=== PATIENT | male | born 1940 | race Caucasian/White ===

== ENCOUNTER 2016-06-10 09:58 | Day surgery (SDC) | payer OTHER ==
[~2016-06-10] VITALS: Ht 180.3 cm; Wt 127.0 kg
[~2016-06-10 09:58] MED LIST: ASPIR 8181 M1 PO; ASPIRIN EC325 MG PO; ASPIRIN81 M1 PO; AUGMENTIN875 MG PO; AZITHROMYCIN500 M1 PO; Aspirin PO; CITALOPRAM HBR20 MG PO; COUMADIN2 MG PO; COUMADIN4 MG PO; COUMADIN5 MG PO; Ecotrin PO; FENOFIBRATE160 M1 PO; FUROSEMIDE40 MG PO; Fenofibrate PO; HYDROCODON-ACE1 EAC7 PO; IMDUR60 MG PO; IRON160 M1 PO; ISOSORBIDE MONO60 MG PO; K-DUR20 MEQ PO; LEXAPRO20 MG PO; LORAZEPAM0.5 MG PO; LORAZEPAM1 MG PO; LUNESTA2 MG PO; METOPROLOL SUC100 MG PO; METOPROLOL TART50 MG PO; Metoprolol Tartrate PO; NAPROSYN500 MG PO; NAPROXEN500 M2 PO; NORVASC5 MG PO; Norvasc PO; OMEPRAZOLE20 M3 PO; PLAVIX75 MG PO; PRAVASTATIN SOD40 MG PO; PRINZIDE 20-121 EACH PO; Pravastatin Sodium PO; TOPROL XL100 MG PO; TRAZODONE HCL50 MG PO; TRIGLIDE160 MG PO; TYLENOL EXTRA500 MG PO; WARFARIN SODIUM2 MG PO; Warfarin Sodium PO
[2016-06-10 13:07] VITALS: BP 158/92
[2016-06-10 13:35] LABS: INTER. NORMALIZED RATIO 1.3; PROTHROMBIN TIME 13.1 (9.2-11.2)
[2016-06-10] MEDS ORDERED: NORCO 5/3251 TABLET PO (19:40)
[2016-06-10 20:50] VITALS: BP 182/83
== END 2016-06-10 21:40 | disposition home or self-care (01) ==
LOC: SDC 09:58 → NUC 10:30 → SDC 21:40
PROVIDERS: Surgery
DX: C43.59 Malignant melanoma of other part of trunk (principal); C44.529 Squamous cell carcinoma of skin of other part of trunk; Z79.82 Long term (current) use of aspirin; I10 Essential (primary) hypertension; Z98.61 Coronary angioplasty status; Z87.891 Personal history of nicotine dependence; Z82.49 Family history of ischemic heart disease and other diseases of the circulatory system; Z82.5 Family history of asthma and other chronic lower respiratory diseases; Z80.0 Family history of malignant neoplasm of digestive organs; Z83.3 Family history of diabetes mellitus
CPT/HCPCS: 78195; 78999; 85610; 88305; 88307; 88341 TC; 88342 TC; A9541; J0690; J1170; J2060; J3010; S0020

== ENCOUNTER 2016-07-10 08:07 | Day surgery (SDC) | payer OTHER ==
[~2016-07-10] VITALS: Ht 180.3 cm; Wt 127.0 kg
[~2016-07-10 08:07] MED LIST changes: +NORCO 5/3251 TABLET PO
[2016-07-10 08:46] VITALS: BP 137/67
[2016-07-10 09:15] LABS: INTER. NORMALIZED RATIO 1.3; PROTHROMBIN TIME 12.9 (9.2-11.2)
[2016-07-10] MEDS ORDERED: PERCOCET 5/31 TABLET PO (14:48)
[2016-07-10 17:30] VITALS: BP 164/93
[2016-07-10 18:30] VITALS: BP 151/76
== END 2016-07-10 19:13 | disposition home or self-care (01) ==
LOC: NUC 08:07 → SDC 08:07 → NUC 10:00 → SDC 19:13
PROVIDERS: Surgery
PROC: 07B60ZX Excision of Left Axillary Lymphatic, Open Approach, Diagnostic (ICD-10-PCS; principal; 2016-07-10)
PROC: 0JQ70ZZ Repair Back Subcutaneous Tissue and Fascia, Open Approach (ICD-10-PCS; 2016-07-10)
PROC: 0HB6XZX Excision of Back Skin, External Approach, Diagnostic (ICD-10-PCS; 2016-07-10)
DX: C43.59 Malignant melanoma of other part of trunk (principal); D04.5 Carcinoma in situ of skin of trunk; I49.9 Cardiac arrhythmia, unspecified; I11.0 Hypertensive heart disease with heart failure; I25.2 Old myocardial infarction; Z79.82 Long term (current) use of aspirin; Z79.01 Long term (current) use of anticoagulants; Z87.891 Personal history of nicotine dependence; Z95.1 Presence of aortocoronary bypass graft; Z95.5 Presence of coronary angioplasty implant and graft
CPT/HCPCS: 78195; 78999; 85610; 88305; 88307; 88341 TC; 88342 TC; A9541; J0690; J1170; J3010

== ENCOUNTER 2017-07-14 13:23 | Inpatient (IN) | payer OTHER ==
[~2017-07-14] VITALS: Ht 180.3 cm; Wt 123.8 kg
[~2017-07-14 13:23] MED LIST changes: +PERCOCET 5/31 TABLET PO
[2017-07-14 14:29] LABS: BASOPHIL COUNT 0.1 K/uL (0-0.1); EOSINOPHIL (%) 1.4 % (0-5); EOSINOPHIL COUNT 0.1 K/uL (0-0.3); HEMATOCRIT 45.2 % (38.0-50.0); HEMOGLOBIN 15.6 G/DL (12.5-16.6); IMMATURE GRANULOCYTE (%) 0.4 % (0.0-0.7); LYMPHOCYTE (%) 5.1 % (15-42); LYMPHOCYTE COUNT 0.3 K/uL (1.0-2.8); MCH 33.1 PG (29.0-34.0); MCHC 34.5 G/DL (30.0-36.0); MONOCYTE (%) 9.3 % (3-12); MONOCYTE COUNT 0.5 K/uL (0-0.8); NEUTROPHIL (%) 82.8 % (45-76); NEUTROPHIL COUNT 4.1 K/uL (1.8-6.4); PLATELET COUNT 114 K/uL (156-360); RBC DIS.WIDTH-CV 14.7 % (11.8-14.6); RBC DIS.WIDTH-SD 51.7 % (39-53); RED BLOOD COUNT 4.71 M/uL (4.00-5.50)
[2017-07-14 14:35] LABS: INTER. NORMALIZED RATIO 2.5
[2017-07-14 14:37] LABS: PTT 37.1 SEC (25-37)
[2017-07-14 14:38] LABS: CHLORIDE 106 mEq/L (99-109); POTASSIUM 3.9 mEq/L (3.7-5.4); SODIUM 142 mEq/L (136-147)
[2017-07-14 14:40] LABS: GLUCOSE 119 mg/dL (70-99)
[2017-07-14 14:44] LABS: CREATININE 0.8 mg/dL (0.6-1.3); GFR ESTIMATE (CALCULATED) > 59 mL/min/ (58.99-99999)
[2017-07-14 14:45] LABS: UREA NITROGEN (BUN) 16 mg/dL (9-23)
[2017-07-14 14:52] LABS: TROP-I INTERPRETATION NEGATIVE; TROPONIN-I < 0.01 ng/mL (0.0-0.30)
[2017-07-14 19:40] VITALS: BP 184/92
[2017-07-14 23:45] VITALS: BP 151/73
[2017-07-15 00:59] LABS: TROP-I INTERPRETATION NEGATIVE; TROPONIN-I 0.01 ng/mL (0.0-0.30)
[2017-07-15 05:30] LABS: HEMATOCRIT 45.2 % (38.0-50.0); HEMOGLOBIN 14.8 G/DL (12.5-16.6); MCH 32.4 PG (29.0-34.0); MCHC 32.7 G/DL (30.0-36.0); MCV 98.9 FL (86-99); PLATELET COUNT 116 K/uL (156-360); RBC DIS.WIDTH-CV 14.8 % (11.8-14.6); RBC DIS.WIDTH-SD 53.7 % (39-53); RED BLOOD COUNT 4.57 M/uL (4.00-5.50); WHITE BLOOD COUNT 5.9 K/uL (4.1-10.2)
[2017-07-15 05:48] LABS: TROP-I INTERPRETATION NEGATIVE; TROPONIN-I < 0.01 ng/mL (0.0-0.30)
[2017-07-15 05:58] LABS: CHLORIDE 100 MEQ/L (99-109); CREATININE 0.8 MG/DL (0.6-1.3); GFR ESTIMATE (CALCULATED) > 59 mL/min/ (58.99-99999); GLUCOSE 114 mg/dL (70-99); SODIUM 143 MEQ/L (136-147); UREA NITROGEN (BUN) 14 mg/dL (9-23)
[2017-07-15 07:01] LABS: INTER. NORMALIZED RATIO 2.2
[2017-07-15 08:00] VITALS: BP 143/78; BP 166/79; BP 168/80
[2017-07-15 11:31] VITALS: BP 140/64
[2017-07-15] MEDS ORDERED: PRAVACHOL80 MG PO (11:46)
[2017-07-15] MEDS ORDERED: TOPROL XL200 MG PO ×2 (11:47)
[2017-07-15] MEDS ORDERED: ZYLOPRIM100 MG PO (11:48)
[2017-07-15] MEDS ORDERED: LASIX80 MG PO (11:49)
[2017-07-15 16:21] VITALS: BP 151/78
[2017-07-15 20:10] VITALS: BP 123/59
[2017-07-15 23:50] VITALS: BP 147/75
[2017-07-16] VITALS (7 sets, daily range): BP systolic 136–179; BP diastolic 67–95
[2017-07-16 05:51] LABS: HEMATOCRIT 42.9 % (38.0-50.0); HEMOGLOBIN 14.4 G/DL (12.5-16.6); MCH 33.2 PG (29.0-34.0); MCHC 33.6 G/DL (30.0-36.0); MCV 98.8 FL (86-99); PLATELET COUNT 115 K/uL (156-360); RBC DIS.WIDTH-CV 15.1 % (11.8-14.6); RBC DIS.WIDTH-SD 54.7 % (39-53); RED BLOOD COUNT 4.34 M/uL (4.00-5.50); WHITE BLOOD COUNT 5.5 K/uL (4.1-10.2)
[2017-07-16 06:00] LABS: INTER. NORMALIZED RATIO 2.6
[2017-07-16 06:11] LABS: CHLORIDE 97 MEQ/L (99-109); CREATININE 0.9 MG/DL (0.6-1.3); GFR ESTIMATE (CALCULATED) > 59 mL/min/ (58.99-99999); GLUCOSE 109 mg/dL (70-99); MAGNESIUM 1.8 mg/dl (1.3-2.7); POTASSIUM 3.3 MEQ/L (3.7-5.4); SODIUM 139 MEQ/L (136-147); UREA NITROGEN (BUN) 13 mg/dL (9-23)
[2017-07-17 04:22] VITALS: BP 135/76
[2017-07-17 05:42] LABS: INTER. NORMALIZED RATIO 2.5
[2017-07-17 05:55] LABS: CHLORIDE 97 MEQ/L (99-109); CREATININE 0.7 MG/DL (0.6-1.3); GFR ESTIMATE (CALCULATED) > 59 mL/min/ (58.99-99999); GLUCOSE 110 mg/dL (70-99); MAGNESIUM 1.9 mg/dl (1.3-2.7); POTASSIUM 3.5 MEQ/L (3.7-5.4); SODIUM 139 MEQ/L (136-147); UREA NITROGEN (BUN) 13 mg/dL (9-23)
[2017-07-17 08:01] VITALS: BP 140/90
[2017-07-17] MEDS ORDERED: ANTIVERT25 MG PO (09:39)
[2017-07-17 11:24] VITALS: BP 122/65
[2017-07-17] MEDS ORDERED: LOPRESSOR100 M1 PO (15:52)
[2017-07-17] MEDS ORDERED: APRESOLINE20 MG/ML IV (15:53)
== END 2017-07-17 13:34 | DRG 154 ==
LOC: EME 13:23 → EDOF 16:09 → 4SOUTH 16:09 → EDOF 16:09 → ENRESERV 16:12 → 4SOUTH 19:19 → ENPENDDIS 07-17 13:00 → 4SOUTH 07-17 13:34
PROVIDERS: Emergency Medicine; Internal Medicine
DX: H72.92 Unspecified perforation of tympanic membrane, left ear (principal); R42 Dizziness and giddiness; R55 Syncope and collapse; I11.0 Hypertensive heart disease with heart failure; I50.33 Acute on chronic diastolic (congestive) heart failure; I48.2 Chronic atrial fibrillation; R09.02 Hypoxemia; I25.10 Atherosclerotic heart disease of native coronary artery without angina pectoris; I45.81 Long QT syndrome; E78.5 Hyperlipidemia, unspecified; I49.3 Ventricular premature depolarization; E66.01 Morbid (severe) obesity due to excess calories; Z68.38 Body mass index [BMI] 38.0-38.9, adult; M10.9 Gout, unspecified; I25.2 Old myocardial infarction; K21.9 Gastro-esophageal reflux disease without esophagitis; Z79.01 Long term (current) use of anticoagulants; Z79.82 Long term (current) use of aspirin; Z85.828 Personal history of other malignant neoplasm of skin; Z87.891 Personal history of nicotine dependence; Z95.5 Presence of coronary angioplasty implant and graft; Z96.659 Presence of unspecified artificial knee joint; Z82.49 Family history of ischemic heart disease and other diseases of the circulatory system
CPT/HCPCS: 70450; 71045; 71250; 80048; 83735; 83880; 84484; 85025; 85027; 85610; 85730; 93005; 93306; 94799; 97530 GP; 99281; 99285; G0378; J1940; J2405

== ENCOUNTER 2017-07-17 10:28 | Inpatient (IN) | payer OTHER ==
[~2017-07-17] VITALS: Ht 180.3 cm; Wt 126.6 kg
[~2017-07-17 10:28] MED LIST changes: +ANTIVERT25 MG PO; +LASIX80 MG PO; +PRAVACHOL80 MG PO; +TOPROL XL200 MG PO; +ZYLOPRIM100 MG PO
[2017-07-17 14:05] VITALS: BP 123/83
[2017-07-17 15:20] VITALS: BP 150/72
[2017-07-17] MEDS ORDERED: LOPRESSOR100 M1 PO (15:52)
[2017-07-17] MEDS ORDERED: APRESOLINE20 MG/ML IV (15:53)
[2017-07-17 23:39] VITALS: BP 97/50
[2017-07-18 06:25] VITALS: BP 127/60
[2017-07-18 07:22] LABS: HEMATOCRIT 42.5 % (38.0-50.0); HEMOGLOBIN 14.4 G/DL (12.5-16.6); MCH 32.1 PG (29.0-34.0); MCHC 33.9 G/DL (30.0-36.0); PLATELET COUNT 125 K/uL (156-360); RBC DIS.WIDTH-CV 14.6 % (11.8-14.6); RBC DIS.WIDTH-SD 51.1 % (39-53); RED BLOOD COUNT 4.49 M/uL (4.00-5.50); WHITE BLOOD COUNT 7.5 K/uL (4.1-10.2)
[2017-07-18 07:31] LABS: ALBUMIN 3.6 G/DL (3.2-4.8); ALKALINE PHOSPHATASE 118 IU/L (3-129); ALT (GPT) 12 IU/L (3-49); AST (GOT) 13 IU/L (2-34); CHLORIDE 97 MEQ/L (99-109); CREATININE 0.7 MG/DL (0.6-1.3); GFR ESTIMATE (CALCULATED) > 59 mL/min/ (58.99-99999); GLUCOSE 104 mg/dL (70-99); POTASSIUM 3.7 MEQ/L (3.7-5.4); SODIUM 135 MEQ/L (136-147); TOTAL BILIRUBIN 3.2 MG/DL (0.0-1.0); TOTAL PROTEIN 5.8 G/DL (6.4-8.3); UREA NITROGEN (BUN) 15 mg/dL (9-23)
[2017-07-18 07:37] LABS: MCV 94.7 FL (86-99)
[2017-07-18 16:08] VITALS: BP 123/71
[2017-07-19 05:14] LABS: INTER. NORMALIZED RATIO 1.7
[2017-07-19 05:45] VITALS: BP 123/67
[2017-07-19 10:24] LABS: BILIRUBIN NEGATIVE; BLOOD NEGATIVE; COLOR AMBER ((YELLOW)); GLUCOSE (STRIP) NEGATIVE; KETONES NEGATIVE; LEUKOCYTES NEGATIVE; NITRITE NEGATIVE; PROTEIN (STRIP) NEGATIVE; SPECIFIC GRAVITY 1.018 (1.000-1.030); UROBILINOGEN 0.2 MG/DL (0.2-1.0)
[2017-07-19 10:36] LABS: APPEARANCE CLEAR ((CLEAR))
[2017-07-19 15:41] VITALS: BP 120/63
[2017-07-20 04:44] VITALS: BP 124/65
[2017-07-20 05:45] LABS: INTER. NORMALIZED RATIO 1.9
[2017-07-20 15:04] VITALS: BP 101/57
[2017-07-21 05:54] VITALS: BP 141/74
[2017-07-21 06:40] LABS: INTER. NORMALIZED RATIO 2.1
[2017-07-21 15:21] VITALS: BP 125/69
[2017-07-22 06:01] LABS: INTER. NORMALIZED RATIO 2.1
[2017-07-22 06:15] VITALS: BP 143/69
[2017-07-22 15:31] VITALS: BP 123/64
[2017-07-22 21:29] VITALS: BP 127/64
[2017-07-23 04:44] LABS: INTER. NORMALIZED RATIO 2.4
[2017-07-23 05:50] VITALS: BP 134/79
[2017-07-23 08:57] LABS: ALBUMIN 3.8 G/DL (3.2-4.8); ALKALINE PHOSPHATASE 139 IU/L (3-129); CHLORIDE 99 MEQ/L (99-109); CREATININE 0.8 MG/DL (0.6-1.3); GFR ESTIMATE (CALCULATED) > 59 mL/min/ (58.99-99999); GLUCOSE 94 mg/dL (70-99); POTASSIUM 3.8 MEQ/L (3.7-5.4); SODIUM 139 MEQ/L (136-147); TOTAL PROTEIN 5.9 G/DL (6.4-8.3); UREA NITROGEN (BUN) 15 mg/dL (9-23)
[2017-07-23 09:11] LABS: ALT (GPT) 26 IU/L (3-49); TOTAL BILIRUBIN 1.3 MG/DL (0.0-1.0)
[2017-07-23 09:12] LABS: AST (GOT) 30 IU/L (2-34)
[2017-07-23 11:22] LABS: HEMATOCRIT 42.4 % (38.0-50.0); HEMOGLOBIN 14.2 G/DL (12.5-16.6); MCH 32.6 PG (29.0-34.0); MCHC 33.5 G/DL (30.0-36.0); MCV 97.2 FL (86-99); PLATELET COUNT 145 K/uL (156-360); RBC DIS.WIDTH-CV 14.6 % (11.8-14.6); RBC DIS.WIDTH-SD 52.8 % (39-53); RED BLOOD COUNT 4.36 M/uL (4.00-5.50)
[2017-07-23 15:48] VITALS: BP 131/70
[2017-07-24 05:16] LABS: INTER. NORMALIZED RATIO 2.4
[2017-07-24 05:57] VITALS: BP 113/58
[2017-07-24 08:16] VITALS: BP 135/86
[2017-07-24] MEDS ORDERED: LASIX80 MG PO (10:59)
[2017-07-24] MEDS ORDERED: COUMADIN5 MG PO (10:59)
[2017-07-24] MEDS ORDERED: LEVOFLOXACIN750 MG PO (10:59)
[2017-07-24] MEDS ORDERED: K-DUR20 MEQ PO (10:59)
[2017-07-24] MEDS ORDERED: ANTIVERT25 MG PO (10:59)
[2017-07-24] MEDS ORDERED: SENNA PLUS TAB1 EACH PO (10:59)
== END 2017-07-24 13:30 | disposition home or self-care (01) | DRG 91 ==
LOC: 3WEST 10:28 → ENPENDDIS 07-24 → 3WEST 07-24 13:30
PROVIDERS: Physical Medicine & Rehabilitation Pain Medicine
PROC: F07M0ZZ Range of Motion and Joint Mobility Treatment of Musculoskeletal System - Whole Body (ICD-10-PCS; principal; 2017-07-17)
DX: R26.9 Unspecified abnormalities of gait and mobility (principal); I25.10 Atherosclerotic heart disease of native coronary artery without angina pectoris; Z96.651 Presence of right artificial knee joint; H91.90 Unspecified hearing loss, unspecified ear; M19.90 Unspecified osteoarthritis, unspecified site; H92.01 Otalgia, right ear; H61.22 Impacted cerumen, left ear; R42 Dizziness and giddiness; I48.2 Chronic atrial fibrillation; E66.01 Morbid (severe) obesity due to excess calories; E87.6 Hypokalemia; E78.5 Hyperlipidemia, unspecified; D69.6 Thrombocytopenia, unspecified; E83.51 Hypocalcemia; Z87.891 Personal history of nicotine dependence; Z82.49 Family history of ischemic heart disease and other diseases of the circulatory system; Z85.820 Personal history of malignant melanoma of skin; Z95.5 Presence of coronary angioplasty implant and graft; I11.0 Hypertensive heart disease with heart failure; Z79.01 Long term (current) use of anticoagulants; Z68.38 Body mass index [BMI] 38.0-38.9, adult; I50.31 Acute diastolic (congestive) heart failure; N39.0 Urinary tract infection, site not specified; M10.9 Gout, unspecified; E87.1 Hypo-osmolality and hyponatremia
CPT/HCPCS: 71045; 80053; 81003; 85027; 85610; 87077; 87086; 87186; 94799; 97110 GO; 97530 GP; J1650